=== PATIENT | male | born 2000 | race Hispanic/Latino ===

== ENCOUNTER 2021-01-17 17:57 | Emergency (ER) | payer BC ==
[2021-01-17 19:35] VITALS: BP 144/67
[2021-01-17 20:10] LABS: Basophils # (Auto) 0.2 K/mm3 (0.0-0.1); Basophils % (Auto) 2.1 % (0.0-1.8); Eosinophils # (Auto) 0.1 K/mm3 (0.0-0.4); Hemoglobin 17.3 gm/dl (11.8-15.2); Lymphocytes # (Auto) 2.3 K/mm3 (1.2-5.4); Lymphocytes % (Auto) 28.9 % (13.4-35.0); Mean Corpuscular HGB Conc 35 % (32-34); Mean Corpuscular Volume 88 fl (84-94); Monocytes # (Auto) 0.7 K/mm3 (0.0-0.8); Monocytes % (Auto) 9.1 % (0.0-7.3); Platelet Count 200 K/mm3 (140-440); Red Blood Count 5.68 M/mm3 (3.65-5.03); Red Cell Distribution Width 12.6 % (13.2-15.2)
[2021-01-17 20:27] LABS: Alanine Aminotransferase 17 units/L (7-56); Albumin 4.5 g/dL (3.9-5); BUN/Creatinine Ratio 12; Blood Urea Nitrogen 11 mg/dL (9-20); Calcium 9.5 mg/dL (8.4-10.2); Hemolysis Index 30
[2021-01-17 21:06] LABS: Amorphous Crystals,Urine Few; Bilirubin,Urine NEG (Negative); Blood,Urine NEG (Negative); Color,Urine Yellow (Yellow); Mucus,Urine 1+ /HPF; Protein,Urine <15 mg/dL mg/dL (Negative)
[2021-01-17] MEDS ORDERED: ACETAMINOPHEN 500 MG TAB PO ONE (21:37)
[2021-01-17] MEDS ORDERED: diazePAM 5 MG TAB PO ONE (21:37)
[2021-01-17] MEDS ORDERED: ONDANSETRON 4 MG ODT TAB PO ONE (21:47)
[2021-01-17] MEDS ORDERED: FAMOTIDINE 20 MG TAB PO ONE (21:47)
--- NOTE | 2021-01-17 22:18 | Emergency Department Report ---
<JEFF MARIO - Last Filed: 01/17/21 22:49> ED General Adult HPI - General Chief complaint: Abdominal Pain Stated complaint: HEAD PAINS/LEG PAINS Source: patient Mode of arrival: Ambulatory Limitations: No Limitations - History of Present Illness Initial comments: Patient is a 20-year-old white male with a history of anxiety and depression who presents to the ED with complaint of epigastric pain that radiates to the chest wall with a burning sensation, worse with food. Patient also complains of bilateral lower extremity tingling sensation for the last 5 weeks. Patient states that he is currently taking multiple mental health medications which he started taking in the last 24 hours. Patient denies dizziness, syncope, fever, chills, nausea, vomiting, diarrhea, change in vision, cough, shortness of breath, traumatic injury or heavy lifting. MD Complaint: Bilateral leg pain; Tingling of lower extremities; epigastric pain -: Sudden, days(s) (2) Location: abdomen (burning epigastric), lower extremity (Bilateral lower extremity) Radiation: non-radiation Severity scale (0 -10): 4 Quality: aching, dull Consistency: constant Improves with: none Worsens with: none Associated Symptoms: denies other symptoms. denies: confusion, chest pain, cough, diaphoresis, fever/chills, headaches, loss of appetite, malaise, nausea/vomiting, rash, seizure, shortness of breath, syncope, weakness Treatments Prior to Arrival: none - Related Data Previous Rx's Medication Instructions Recorded Last Taken Type Famotidine [Pepcid] 20 mg PO BID #60 tablet 01/17/21 Unknown Rx Allergies Allergy/AdvReac Type Severity Reaction Status Date / Time Penicillins Allergy Unknown Verified 01/17/21 19:32 ED Review of Systems Constitutional: malaise. denies: chills, fever Eyes: denies: eye pain, eye discharge, vision change ENT: denies: ear pain, throat pain Respiratory: denies: cough, shortness of breath, wheezing Cardiovascular: denies: chest pain, palpitations Endocrine: no symptoms reported Gastrointestinal: denies: abdominal pain, nausea, diarrhea Genitourinary: denies: urgency, dysuria Musculoskeletal: denies: back pain, joint swelling, arthralgia Skin: denies: rash, lesions Neurological: denies: headache, weakness, paresthesias Psychiatric: anxiety. denies: depression, auditory hallucinations, visual hallucinations, homicidal thoughts, suicidal thoughts Hematological/Lymphatic: denies: easy bleeding, easy bruising ED Past Medical Hx - Past Medical History Previous Medical History?: No Hx Psychiatric Treatment: Yes (Anxiety) - Surgical History Past Surgical History?: Yes Hx Appendectomy: Yes Additional Surgical History: Tonsils - Social History Smoking Status: Never Smoker Substance Use Type: None - Medications Home Medications: Home Medications Medication Instructions Recorded Confirmed Last Taken Type Famotidine [Pepcid] 20 mg PO BID #60 tablet 01/17/21 Unknown Rx ED Physical Exam - General Limitations: No Limitations General appearance: alert, in no apparent distress - Head Head exam: Present: atraumatic, normocephalic, normal inspection - Eye Eye exam: Present: normal appearance, PERRL, EOMI Pupils: Present: normal accommodation - ENT ENT exam: Present: normal exam, normal orophraynx, mucous membranes moist, TM's normal bilaterally, normal external ear exam - Neck Neck exam: Present: normal inspection, full ROM. Absent: tenderness, meningismus, lymphadenopathy, thyromegaly - Respiratory Respiratory exam: Present: normal lung sounds bilaterally. Absent: respiratory distress, wheezes, rales, rhonchi, chest wall tenderness, accessory muscle use, prolonged expiratory - Cardiovascular Cardiovascular Exam: Present: normal rhythm, tachycardia, normal heart sounds. Absent: systolic murmur, diastolic murmur, rubs, gallop - GI/Abdominal GI/Abdominal exam: Present: soft, normal bowel sounds. Absent: tenderness, guarding, hyperactive bowel sounds, hypoactive bowel sounds, organomegaly - Extremities Exam Extremities exam: Present: normal inspection, full ROM, normal capillary refill - Back Exam Back exam: Present: normal inspection, full ROM. Absent: tenderness, CVA tenderness (R), CVA tenderness (L), muscle spasm - Neurological Exam Neurological exam: Present: alert, oriented X3, CN II-XII intact, normal gait, reflexes normal - Psychiatric Psychiatric exam: Present: normal affect, normal mood, anxious. Absent: depressed, manic - Skin Skin exam: Present: warm, dry, intact, normal color. Absent: rash ED Medical Decision Making - Lab Data Result diagrams: 01/17/21 19:54 01/17/21 19:54 - Medical Decision Making This is a 20-year-old white male with a history of anxiety and depression who presents to the ED with complaint of epigastric pain that radiates to the chest wall with a burning sensation, worse with food. Patient also complains of bilateral lower extremity tingling sensation for the last 5 weeks. Patient states that he is currently taking multiple mental health medications which he started taking in the last 24 hours. In the ED, patient is alert and oriented x3 and is not in any distress but anxious during the physical exam, tachycardic in triage. Lab test results were reviewed and are all nonactionable. Patient was treated for for pain and also given anxiety medication. On reevaluation, patient felt better, tachycardia resolved. Patient will discharge home and advised to continue taking his medications as previously prescribed. Patient was also advised to follow-up with his primary care physician in 5 to 7 days for reevaluation or return to the ED immediately if symptoms get worse. - Differential Diagnosis Anxiety; Muscle spasm; Muscle strain ED Disposition Clinical Impression: Anxiety as acute reaction to exceptional stress Muscle strain of lower leg Qualifiers: Encounter type: initial encounter Laterality: unspecified laterality Qualified Code(s): S86.919A - Strain of unspecified muscle(s) and tendon(s) at lower leg level, unspecified leg, initial encounter GERD (gastroesophageal reflux disease) Qualifiers: Esophagitis presence: esophagitis presence not specified Qualified Code(s): K21.9 - Gastro-esophageal reflux disease without esophagitis Disposition: - TO HOME OR SELFCARE Is pt being admited?: No Does the pt Need Aspirin: No Condition: Stable Instructions: Generalized Anxiety Disorder, Adult, Muscle Strain, [id number] Additional Instructions: All lab test results were reviewed and are all unremarkable. Your symptoms are likely due to muscle strains and GERD, and the medications you currently have are likely to help control your symptoms. Follow up with your primary care physician in 2-3 days for reevaluation. Prescriptions: Famotidine [Pepcid] 20 mg PO BID #60 tablet Referrals: [facility] [Provider Group] - 3-5 Days Time of Disposition: 22:21 Print Language: VIETNAMESE <TOYA CLARK - Last Filed: 01/18/21 00:20> ED Review of Systems ROS: Stated complaint: HEAD PAINS/LEG PAINS Other details as noted in HPI ED Course Vital Signs 01/17/21 01/17/2121 19:32 22:49 23:24 Temperature 98.0 F Pulse Rate 119 H 87 82 Respiratory 18 16 17 Rate Blood Pressure 144/67 O2 Sat by Pulse 97 97 99 Oximetry ED Medical Decision Making - Lab Data Result diagrams: 01/17/21 19:54 01/17/21 19:54 Critical care attestation.: If time is entered above; I have spent that time in minutes in the direct care of this critically ill patient, excluding procedure time. ED Disposition Is pt being admited?: No
== END 2021-01-17 23:23 | disposition home or self-care (01) ==
LOC: ED 17:57
DX: S86.919A Strain of unspecified muscle(s) and tendon(s) at lower leg level, unspecified leg, initial encounter (principal); F41.1 Generalized anxiety disorder; F43.0 Acute stress reaction; K21.9 Gastro-esophageal reflux disease without esophagitis; Z79.899 Other long term (current) drug therapy; Z88.0 Allergy status to penicillin; Z90.49 Acquired absence of other specified parts of digestive tract; X58.XXXA Exposure to other specified factors, initial encounter; Y93.89 Activity, other specified; Y92.89 Other specified places as the place of occurrence of the external cause; Y99.8 Other external cause status
CPT/HCPCS: 36415; 80053; 81001; 85025; Q0162